=== PATIENT | female | born 1965 | race American Indian/Alaskan Native ===

== ENCOUNTER 2019-12-26 22:29 | Emergency (ER) | payer BC ==
--- NOTE | 2019-12-26 22:51 | Emergency Department Report ---
ED General Adult HPI - General Chief complaint: Dyspnea/Respdistress Stated complaint: TEZ/BODY ACHES Time Seen by Provider: 12/26/19 22:45 Source: patient Mode of arrival: Ambulatory Limitations: No Limitations - History of Present Illness Initial comments: Patient is a 54-year-old F Cambodian female who is presenting with shortness of breath and mild cough for 2 to 3 weeks. Patient states she saw her primary care physician over week ago and was placed on a short course of antibiotics however she still has the symptoms. Patient denies fever but does state that when she walks she occasionally gets short of breath and feels as though she is going to pass out. Patient states she has some mild dizziness. She denies nausea vomiting diarrhea. Patient states cough is minimally productive. - Related Data Previous Rx's Medication Instructions Recorded Last Taken Type Amoxicillin [Trimox CAP] 500 mg PO Q8H #30 capsule 05/12/15 Unknown Rx Albuterol INH(or & Nicu Only) 2 puff IH QID PRN #1 inhalation 12/26/19 Unknown Rx [ProAir HFA Inhaler] Benzonatate [Tessalon Perles] 100 mg PO Q8HR #10 capsule 12/26/19 Unknown Rx Ketorolac [Toradol] 10 mg PO Q6H PRN #10 tablet 12/26/19 Unknown Rx Allergies Allergy/AdvReac Type Severity Reaction Status Date / Time tramadol Allergy Shortness Verified 05/12/15 07:18 of Breath hydrocodone AdvReac SHAKING/JAMMIE Verified 05/12/15 07:19 NIELS ED Review of Systems ROS: Stated complaint: TEZ/BODY ACHES Other details as noted in HPI Comment: All other systems reviewed and negative ED Past Medical Hx - Past Medical History Previous Medical History?: Yes Hx Hypertension: Yes Hx Pulmonary Embolism: Yes - Surgical History Past Surgical History?: Yes Hx Appendectomy: Yes Additional Surgical History: right rotator cuff repair - Social History Smoking Status: Never Smoker Substance Use Type: Alcohol - Medications Home Medications: Home Medications Medication Instructions Recorded Confirmed Last Taken Type Amoxicillin [Trimox CAP] 500 mg PO Q8H #30 capsule 05/12/15 Unknown Rx Albuterol INH(or & Nicu Only) 2 puff IH QID PRN #1 inhalation 12/26/19 Unknown Rx [ProAir HFA Inhaler] Benzonatate [Tessalon Perles] 100 mg PO Q8HR #10 capsule 12/26/19 Unknown Rx Ketorolac [Toradol] 10 mg PO Q6H PRN #10 tablet 12/26/19 Unknown Rx ED Physical Exam - General Limitations: No Limitations General appearance: alert, in no apparent distress - Head Head exam: Present: atraumatic, normocephalic - Eye Eye exam: Present: normal appearance - ENT ENT exam: Present: mucous membranes moist - Neck Neck exam: Present: normal inspection - Respiratory Respiratory exam: Present: normal lung sounds bilaterally. Absent: respiratory distress, wheezes, rales, rhonchi - Cardiovascular Cardiovascular Exam: Present: regular rate, normal rhythm, normal heart sounds. Absent: systolic murmur, diastolic murmur, rubs, gallop - GI/Abdominal GI/Abdominal exam: Present: soft, normal bowel sounds. Absent: distended, tenderness, guarding - Extremities Exam Extremities exam: Present: normal inspection - Back Exam Back exam: Present: normal inspection - Neurological Exam Neurological exam: Present: alert, oriented X3 - Psychiatric Psychiatric exam: Present: normal affect, normal mood - Skin Skin exam: Present: warm, dry, intact, normal color. Absent: rash ED Course Vital Signs 12/26/19 22:36 Temperature 97.9 F Pulse Rate 62 Respiratory 20 Rate Blood Pressure 152/95 O2 Sat by Pulse 98 Oximetry ED Medical Decision Making - Radiology Data [facility] [address] [place] [address] XRay Report Signed Patient: MARY ANN MOELLER MR#: [id number] : 1965 Acct:[id number] Age/Sex: 54 / F ADM Date: 12/26/19 Loc: ED Attending Dr: Ordering Physician: LEONARDO DEUTSCH MD Date of Service: 12/26/19 Procedure(s): XR chest routine 2V Accession Number(s): [id number] cc: LEONARDO DEUTSCH MD Fluoro Time In Minutes: CHEST 2 VIEWS INDICATION / CLINICAL INFORMATION: cough weakness x2 weeks. COMPARISON: 05/12/15 FINDINGS: SUPPORT DEVICES: None. HEART / MEDIASTINUM: No significant abnormality. LUNGS / PLEURA: No significant pulmonary or pleural abnormality. No pneumothorax. ADDITIONAL FINDINGS: No significant additional findings. IMPRESSION: 1. No acute findings. No change. Signer Name: Colleen Huynh MD Signed: 12/26/2019 11:27 PM Workstation Name: [id number] - Medical Decision Making Patient is a 54-year-old F Camb[place]ian female who is presenting with cough and occasional dizziness. Patient is chest x-ray and vital signs are within normal limits. Patient was given patient education regarding upper respiratory infections and coronavirus. Patient needs to have her primary doctor give her referral to get tested at outpatient testing center. Patient does not meet criteria for admission at this time. Patient will be given medication for symptomatic relief and be discharged home. Critical care attestation.: If time is entered above; I have spent that time in minutes in the direct care of this critically ill patient, excluding procedure time. ED Disposition Clinical Impression: Suspected COVID-19 virus infection Upper respiratory infection Qualifiers: URI type: unspecified viral URI Qualified Code(s): J06.9 - Acute upper respiratory infection, unspecified Disposition: DC-01 TO HOME OR SELFCARE Is pt being admited?: No Does the pt Need Aspirin: No Condition: Stable Instructions: COVID-19, Upper Respiratory Infection (ED) Referrals: SERGO LEWIS MD [Staff Physician] - 3-5 Days Time of Disposition: 23:54
--- NOTE | 2019-12-26 23:31 | XRay Report ---
CHEST 2 VIEWS INDICATION / CLINICAL INFORMATION: cough weakness x2 weeks. COMPARISON: 05/12/15 FINDINGS: SUPPORT DEVICES: None. HEART / MEDIASTINUM: No significant abnormality. LUNGS / PLEURA: No significant pulmonary or pleural abnormality. No pneumothorax. ADDITIONAL FINDINGS: No significant additional findings. IMPRESSION: 1. No acute findings. No change. Signer Name: Colleen Huynh MD Signed: 12/26/2019 11:27 PM Workstation Name: [id number]
[2019-12-27 00:40] VITALS: BP 136/74
== END 2019-12-27 00:41 | disposition home or self-care (01) ==
LOC: ED 22:29
DX: J06.9 Acute upper respiratory infection, unspecified (principal); I10 Essential (primary) hypertension; Z90.49 Acquired absence of other specified parts of digestive tract; Z86.711 Personal history of pulmonary embolism; Z79.01 Long term (current) use of anticoagulants; Z88.6 Allergy status to analgesic agent
CPT/HCPCS: 71046

== ENCOUNTER 2020-03-15 16:32 | Emergency (ER) | payer BC ==
[2020-03-15 16:39] VITALS: BP 177/90
--- NOTE | 2020-03-15 17:33 | Emergency Department Report ---
Chief Complaint: Extremity Injury, Upper Stated Complaint: SHOULDER BLADE PAIN Time Seen by Provider: 03/15/20 17:20 - HPI History of Present Illness: 54-year-old -Thai female patient presents with complaints of continued right shoulder pain after injuring her shoulder at work on Wednesday of this week. Patient states she was seen by an urgent care for Workmen's Comp the following day and had an x-ray that was normal. Patient states she was diagnosed with a pulled muscle in her shoulder/back and was prescribed Tylenol and a muscle relaxer. Patient states the medications are not helping and she is here for reevaluation. - Exam Vital Signs: Vital Signs 03/15/20 03/15/20 16:39 17:17 Temperature 98.2 F 98.2 F Pulse Rate 67 67 Respiratory 18 18 Rate Blood Pressure 177/90 Blood Pressure 177/90 [Right] O2 Sat by Pulse 98 98 Oximetry MSE screening note: Focused history and physical exam performed. Due to findings the following was ordered: ED Medical Decision Making - Radiology Data 54-year-old -Thai female patient presents with complaints of continued right shoulder pain after injuring her shoulder at work on Wednesday of this week. Patient states she was seen by an urgent care for Workmen's Comp the following day and had an x-ray that was normal. Patient states she was diagno sed with a pulled muscle in her shoulder/back and was prescribed Tylenol and a muscle relaxer. Patient states the medications are not helping and she is here for reevaluation. Patient advised to follow-up with her Workmen's Comp. physician within 3 days and try ibuprofen 800 mg 3 times a day for up to 7 days for her pain. Also recommend patient ices the area of pain 3 times a day for 15 minutes at a time. Strict return precautions were discussed in detail with patient who verbalized understanding. ED Disposition for MSE Clinical Impression: Right shoulder injury Qualifiers: Encounter type: initial encounter Qualified Code(s): S49.91XA - Unspecified injury of right shoulder and upper arm, initial encounter Disposition: MED SCREENING EXAM-LEFT Is pt being admited?: No Condition: Stable Instructions: Shoulder Sprain (ED) Additional Instructions: Please follow-up with your Workmen's Comp. physician within 3 to 5 days I also recommend that you try ibuprofen 800 mg 3 times a day as needed for your pain for up to 7 days Referrals: LAURIE MUNSON MD [Staff Physician] - 3-5 Days ED Physical Exam - General Limitations: No Limitations General appearance: alert, in no apparent distress, obese - Head Head exam: Present: atraumatic, normocephalic - Neck Neck exam: Present: full ROM. Absent: tenderness - Respiratory Respiratory exam: Absent: respiratory distress - Cardiovascular Cardiovascular Exam: Present: regular rate - Extremities Exam Extremities exam: Present: other (Tenderness noted to muscles overlying the right scapula, no bony tenderness noted of the thoracic or cervical spine or the right shoulder; patient has normal strength and sensation of the right shoulder and arm) - Back Exam Back exam: Present: full ROM - Neurological Exam Neurological exam: Present: alert, oriented X3 - Psychiatric Psychiatric exam: Present: agitated - Skin Skin exam: Present: warm, dry, intact, normal color. Absent: rash ED Review of Systems ROS: Stated complaint: SHOULDER BLADE PAIN Other details as noted in HPI Respiratory: denies: cough, shortness of breath Cardiovascular: denies: chest pain Musculoskeletal: arthralgia. denies: joint swelling Neurological: denies: weakness, numbness, paresthesias
== END 2020-03-15 17:39 | disposition left against medical advice (07) ==
LOC: ED 16:32
DX: S49.91XA Unspecified injury of right shoulder and upper arm, initial encounter (principal); Z53.21 Procedure and treatment not carried out due to patient leaving prior to being seen by health care provider; X58.XXXA Exposure to other specified factors, initial encounter; Y93.89 Activity, other specified; Y92.89 Other specified places as the place of occurrence of the external cause; Y99.8 Other external cause status